=== PATIENT | male | born 1995 | race Caucasian/White ===

== ENCOUNTER 2021-01-20 02:02 | Emergency (ER) | payer OTHER ==
[~2021-01-20] VITALS: Ht 180.3 cm; Wt 85.7 kg
[2021-01-20 02:04] VITALS: BP_SYST 153
[2021-01-20 02:22] VITALS: BP_SYST 153
== END 2021-01-20 02:22 ==
LOC: SED 02:02
DX: R56.9 Unspecified convulsions (principal)
CPT/HCPCS: 99283